=== PATIENT | male | born 1935 | race Caucasian/White ===

== ENCOUNTER 2017-04-07 07:32 | Emergency (ER) | payer MEDICARE, BC ==
[~2017-04-07] VITALS: Ht 172.7 cm; Wt 109.0 kg
[~2017-04-07 07:32] MED LIST: ATOR20TA42 PO; AVOD0.5C PO; BENI40TA30 PO; CARV20 PO; GLUCTAB OR; LORTA5 PO; SITA100 PO; TAMS0.4C67 PO
[2017-04-07 07:34] VITALS: BP 187/93; PULSE 97; RESP 16; TEMP 97.7; O2SAT 97
[2017-04-07] MEDS ORDERED: METF500T4 PO (07:53)
[2017-04-07] MEDS ORDERED: TAMS5CAP PO (07:53)
[2017-04-07] MEDS ORDERED: LIPI20TA PO (07:53)
[2017-04-07] MEDS ORDERED: CARV20 PO (07:53)
[2017-04-07] MEDS ORDERED: SITA1TAB2 PO (07:53)
[2017-04-07] MEDS ORDERED: BENI40TA3 PO (07:53)
[2017-04-07] MEDS ORDERED: AVOD0.5C PO (07:53)
[2017-04-07] MEDS ORDERED: KETOROLAC TROMETHAMINE 30 MG/ML (IVP) VIAL IVP ONE (08:00)
--- NOTE | 2017-04-07 08:01 | PD ---
HPI Chief Complaint: Flank/Kidney Pain Time Seen by Provider: 07:52 Travel History International Travel<30 days: No Contact w/Intl Traveler<30days: No Traveled to known affect area: No History of Present Illness HPI 81-year-old male complains of right low back pain. Patient states the pain started 3 weeks ago and get worse since yesterday. Patient states the pain is sharp pain localized right low back area. Patient states that the pain occasionally radiates to the right groin. Patient denies any headache. Patient denies any chest pain or shortness of breath. Patient denies abdominal pain. Patient denies any nausea vomiting diarrhea. Patient denies dysuria or frequency. Patient denies any fever chills. Patient has history kidney stone in the past. Patient has an appointment with urologist in 2 days. PFSH Past Medical History Hx Anticoagulant Therapy: No Cardiovascular Problems: Yes (HTN, CHOL) High Cholesterol: Yes Diabetes: Yes Patient Takes Glucophage: Yes Diminished Hearing: No Gastrointestinal Disorders: Yes (GALL STONES NOTED VIA CT FOR BLADDER/KIDNEY STONES) Hypertension: Yes Kidney Stones: Yes Immunizations Current: Yes Tetanus Vaccination: < 5 Years Influenza Vaccination: Yes Past Surgical History Eye Surgery: Yes (BILATERAL CATARACTS) Genitourinary Surgery: Yes (STONE REMOVED FROM BLADDER 03/08/07/LITHOTRIPSY) Tonsillectomy: Yes Social History Alcohol Use: No Tobacco Use: No Substance Use: No Allergies-Medications (Allergen,Severity, Reaction): Coded Allergies: Bactrim (Verified Allergy, Intermediate, ITCHING, 04/07/17) Reported Meds & Prescriptions Reported Meds & Active Scripts Active Arminto (Hydrocodone-Acetaminophen) 5-325 mg Tab 1 Tab PO Q6H PRN Reported Flomax (Tamsulosin HCl) 0.4 Mg Cap 0.4 Mg PO HS Januvia (Sitagliptin Phosphate) 100 Mg Tab 100 Mg PO DAILY Benicar (Olmesartan) 40 Mg Tab 40 Mg PO DAILY Metformin ER (Metformin HCl) 500 Mg Kiersten 500 Mg PO DAILY With evening meal Avodart (Dutasteride) 0.5 Mg Cap 0.5 Mg PO DAILY Coreg Cr 24 HR (Carvedilol) 20 Mg Cap 20 Mg PO DAILY Lipitor (Atorvastatin Calcium) 20 Mg Tab 20 Mg PO HS Review of Systems General / Constitutional: No: Fever Eyes: No: Visual changes HENT: No: Headaches Cardiovascular: No: Chest Pain or Discomfort Respiratory: No: Shortness of Breath Gastrointestinal: No: Abdominal Pain Genitourinary: No: Dysuria Musculoskeletal: No: Pain Skin: No Rash Neurologic: No: Weakness Psychiatric: No: Depression Endocrine: No: Polydipsia Hematologic/Lymphatic: No: Easy Bruising Physical Exam Narrative GENERAL: Well-nourished, well-developed patient. SKIN: Focused skin assessment warm/dry. HEAD: Normocephalic. EYES: No scleral icterus. No injection or drainage. NECK: Supple, trachea midline. No JVD or lymphadenopathy. CARDIOVASCULAR: Regular rate and rhythm without murmurs, gallops, or rubs. RESPIRATORY: Breath sounds equal bilaterally. No accessory muscle use. GASTROINTESTINAL: Abdomen soft, non-tender, nondistended. MUSCULOSKELETAL: No cyanosis, or edema. BACK: patient has mild to moderate tenderness on patient and right low lumbar and the right buttock area. Negative straight leg raising. Neurologic exam normal. Data Data Last Documented VS Vital Signs Date Time Temp Pulse Resp B/P Pulse Ox O2 Delivery O2 Flow Rate FiO2 04/07/17 08:45 18 98 Room Air 04/07/17 07:34 97.7 97 187/93 Orders Basic Metabolic Panel (Bmp) (04/07/17 07:56) Complete Blood Count With Diff (04/07/17 07:56) Urinalysis - C+S If Indicated (04/07/17 07:56) Ct Abd/Pel W/O Iv Contrast (04/07/17 07:56) Iv Access Insert/Monitor (04/07/17 07:56) Ecg Monitoring (04/07/17 07:56) Oximetry (04/07/17 07:56) Ketorolac Inj (Toradol Inj) (04/07/17 08:00) Urine Culture (04/07/17 08:00) Labs Laboratory Tests Test 04/07/17 04/07/17 08:00 08:46 Urine Collection Type CLEAN CATCH Urine Color YELLOW Urine Turbidity CLEAR Urine pH 5.5 Urine Specific [place] 1.013 Urine Protein NEG mg/dL Urine Glucose (UA) NEG mg/dL Urine Ketones NEG mg/dL Urine Occult Blood TRACE Urine Nitrite NEG Urine Bilirubin NEG Urine Leukocyte Esterase TRACE Urine RBC 0-3 /hpf Urine WBC 9-14 /hpf Urine Squamous Epithelial 0-5 /hpf Cells Urine White Blood Cell Casts 0-2 /lpf Microscopic Urinalysis Comment CULTURE INDICATED White Blood Count 6.1 TH/MM3 Red Blood Count 4.64 MIL/MM3 Hemoglobin 12.3 GM/DL Hematocrit 39.2 % Mean Corpuscular Volume 84.5 FL Mean Corpuscular Hemoglobin 26.5 PG Mean Corpuscular Hemoglobin 31.4 % Concent Red Cell Distribution Width 14.4 % Platelet Count 146 TH/MM3 Mean Platelet Volume 8.6 FL Neutrophils (%) (Auto) 80.3 % Lymphocytes (%) (Auto) 7.3 % Monocytes (%) (Auto) 9.5 % Eosinophils (%) (Auto) 2.4 % Basophils (%) (Auto) 0.5 % Neutrophils # (Auto) 5.0 TH/MM3 Lymphocytes # (Auto) 0.4 TH/MM3 Monocytes # (Auto) 0.6 TH/MM3 Eosinophils # (Auto) 0.1 TH/MM3 Basophils # (Auto) 0.0 TH/MM3 CBC Comment DIFF FINAL Differential Comment Sodium Level 142 MEQ/L Potassium Level 3.7 MEQ/L Chloride Level 110 MEQ/L Carbon Dioxide Level 25.1 MEQ/L Anion Gap 7 MEQ/L Blood Urea Nitrogen 28 MG/DL Creatinine 1.80 MG/DL Estimat Glomerular Filtration 36 ML/MIN Rate Random Glucose 126 MG/DL Calcium Level 7.8 MG/DL [facility] Medical Decision Making Medical Screen Exam Complete: Yes Emergency Medical Condition: Yes Interpretation(s) 8:[address] scan abdomen pelvis shows 9 mm nonobstructive right renal stone. 11 mm stone in the urinary bladder. Cholelithiasis. Right adrenal gland adenoma. Severe DJD changes. Severe sigmoid diverticulosis. UA positive for WBC. 9:26 AM. CBC within normal limit. WBC 6.1 with 80 neutrophil. BUN 28. Creatinine 1.8. GFR 36. Calcium 7.8. Differential Diagnosis Differential diagnosis including musculoskeletal, nephrolithiasis, pyelonephritis. Narrative Course 81-year-old male with right low back pain. History of kidney stone. Toradol 30 mg IV. Diagnosis Primary Impression: Low back pain Qualified Code: M54.5 - Acute right-sided low back pain without sciatica Additional Impressions: UTI (urinary tract infection) Qualified Code: N30.00 - Acute cystitis without hematuria Nephrolithiasis Renal insufficiency Patient Instructions: General Instructions Additional Instructions: Take medications as directed. Follow-up with personal physician and urologist. Return if worse. Med/Other Pt SpecificInfo: Prescription(s) given Scripts Ciprofloxacin (Cipro)500 Mg Aun904 Mg PO BID #14 TAB Prov:Eh Mei MD 04/07/17 Hydrocodone-Acetaminophen (Arminto)5-325 mg Tab1 Tab PO Q6H PRN (PAIN) #30 TAB Prov:Eh Mei MD 04/07/17 Disposition: 01 DISCHARGE HOME Condition: Stable Eh Mei MD Apr 07, 2017 08:01
[2017-04-07 08:22] LABS: BLOOD, URINE TRACE (NEG); GLUCOSE,URINE NEG (NEG); KETONE, URINE NEG (NEG); NITRITE,URINE NEG (NEG); PH, URINE 5.5 (5.0-8.5)
--- NOTE | 2017-04-07 08:32 | RADRPT ---
EXAM DATE/TIME: 04/07/2017 08:05 [place] COMPARISON: No previous studies available for comparison. INDICATIONS : Right back pain. ORAL CONTRAST: No oral contrast ingested. RADIATION DOSE: 27.85 CTDIvol (mGy) MEDICAL HISTORY : Hypertension. Gallstones, kidney stones SURGICAL HISTORY : Lithotripsy ENCOUNTER: Initial ACUITY: 3 weeks PAIN SCALE: 7/10 LOCATION: Right flank TECHNIQUE: Volumetric scanning of the abdomen and pelvis was performed. Using automated exposure control and ad justment of the mA and/or kV according to patient size, radiation dose was kept as low as reasonably achievable to obtain optimal diagnostic quality images. DICOM format image data is available electro nically for review and comparison. FINDINGS: LOWER LUNGS: Nonvisualized. LIVER: Homogeneous density without lesion. There is no dilation of the biliary tree. There are 2 large clay cified stones in the gallbladder. SPLEEN: Normal size without lesion. PANCREAS: Within normal limits. KIDNEYS: Normal in size and shape. There is no mass or hydronephrosis. There is a 15 mm low-density lesion in the right mid kidney with density measurements characteristic of a cyst. A 9 mm nonobstructing stone is present in the right lower pole collecting system. There are no left renal stones. ADRENAL GLANDS: There is a 14 mm right adrenal gland mass with Hounsfield measurements of 9. Left adrenal gland is wi thin normal limits. VASCULAR: There is no aortic aneurysm. There is moderate to severe atherosclerotic disease. BOWEL/MESENTERY: The stomach, small bowel, and colon demonstrate no acute abnormality. There is no free intraperitone al air or fluid. There is sigmoid and ascending colon diverticulosis. Groundglass attenuation is pres ent within the small bowel mesentery. The appendix is normal. Diverticulum arises from the third port ion of the duodenum. ABDOMINAL WALL: Within normal limits. RETROPERITONEUM: There is no lymphadenopathy. BLADDER: No wall thickening or mass. There is an 11 mm stone in the left urinary bladder. REPRODUCTIVE: Prostate gland is enlarged with calcification. INGUINAL: There is no lymphadenopathy or hernia. MUSCULOSKELETAL: There are degenerative changes of the lumbar spine. CONCLUSION: 1. There is a 9 mm nonobstructing right renal stone but no ureteral stones or signs of urinary obstru ction are present. 2. There is also 11 mm stone in the urinary bladder. 3. Nonacute findings included cholelithiasis, 14 mm right adrenal gland adenoma, severe atherosclerot ic disease, and severe sigmoid diverticulosis. John Manning MD on April 07, 2017 at 8:25 Board Certified Radiologist. This report was verified electronically.
[2017-04-07 08:33] LABS: METHOD OF COLLECTION CLEAN CATCH; URINE COLOR YELLOW (YELLW/STRAW)
[2017-04-07 08:34] LABS: RBC, URINE 0-3 /hpf (0-3)
[2017-04-07 08:35] LABS: COMMENT (UR) CULTURE INDICATED; CULTURE IF INDICATED CULTURE INDICATED; SQUAMOUS EPITHELIAL CELL URINE 0-5 /hpf (0-5); WHITE BLOOD CELL CAST, URINE 0-2 /lpf
[2017-04-07 08:45] VITALS: RESP 18; O2SAT 98
[2017-04-07 08:55] LABS: BASOPHIL % 0.5 % (0.0-2.0); EOSINOPHIL # 0.1 TH/MM3 (0-0.4); EOSINOPHIL % 2.4 % (0.0-4.0); HEMATOCRIT 39.2 % (39.0-51.0); HEMO FLAGS DIFF FINAL; LYMPH % 7.3 % (9.0-44.0); LYMPHOCYTE # 0.4 TH/MM3 (1.0-4.8); MEAN CELL VOLUME 84.5 FL (80.0-100.0); MEAN CORPUSCULAR HEMOGLOBIN 26.5 PG (27.0-34.0); MEAN CORPUSCULAR HGB CONC 31.4 % (32.0-36.0); MONO % 9.5 % (0.0-8.0); NEUT % 80.3 % (16.0-70.0); PLATELET COUNT 146 TH/MM3 (150-450); RED BLOOD COUNT 4.64 MIL/MM3 (4.50-5.90); RED CELL DISTRIBUTION WIDTH 14.4 % (11.6-17.2); WHITE BLOOD COUNT 6.1 TH/MM3 (4.0-11.0)
[2017-04-07 09:03] LABS: POTASSIUM 3.7 MEQ/L (3.5-5.1)
[2017-04-07 09:07] LABS: BICARBONATE 25.1 MEQ/L (21.0-32.0)
[2017-04-07] MEDS ORDERED: CIPR-9 PO (09:30)
[2017-04-07] MEDS ORDERED: NORC5TAB PO (09:30)
== END 2017-04-07 09:45 | disposition home or self-care (01) ==
LOC: PHED 07:32
DX: N30.00 Acute cystitis without hematuria (principal); B96.89 Other specified bacterial agents as the cause of diseases classified elsewhere; N20.0 Calculus of kidney; N21.0 Calculus in bladder; K57.30 Diverticulosis of large intestine without perforation or abscess without bleeding; I10 Essential (primary) hypertension; E11.9 Type 2 diabetes mellitus without complications; Z79.84 Long term (current) use of oral hypoglycemic drugs
CPT/HCPCS: 74176; 80048; 81001; 85025; 87086; 96374; 99285; J1885